=== PATIENT | male | born 1935 | race Hispanic/Latino ===

== ENCOUNTER 2018-12-24 11:48 | Day surgery (SDC) | payer OTHER, MEDICARE ==
[2018-12-24 08:26] VITALS: PULSE 60
[2018-12-24] MEDS ORDERED: Iohexol 350 MG/100 ML VIAL ONE ×2 (12:50→16:08)
[2018-12-24] MEDS ORDERED: Iohexol 350mgl/ml 50 ML ONE (12:50)
[2018-12-24] MEDS ORDERED: Lidocaine PF 2% (5 ml) Inj (For Cardiac Arrhy) ONE (12:50)
[2018-12-24] MEDS ORDERED: Midazolam 2 MG/2 ML VIAL ONE (15:33)
[2018-12-24 16:43] VITALS: BMI 30.8
[2018-12-24] MEDS ORDERED: Sodium Chloride 0.9% 1,000 ML IV STA (16:54)
--- NOTE | 2018-12-24 20:12 | CARDCATH ---
PROCEDURE DATE: 12/24/2018 INDICATIONS: Mr. Maya is an 83-year-old male who presented to [facility] with having a bout of syncope. The patient was noted to be in atrial fibrillation and had history of pacemaker placement in the past. He was noted to have recurrent bouts of orthostatic hypertension for which he was initiated on midodrine. The patient underwent echocardiogram, which raised concern for moderate aortic stenosis and the possibility for etiology of his recurrent syncopal episodes and he was therefore brought to the [facility] for further evaluation and treatment with complete heart catheterization for hemodynamic evaluation of recurrent syncope. PROCEDURES PERFORMED: Complete heart catheterization with selective left and right coronary angiogram. Right heart catheterization with pressures and hemodynamics, simultaneous left ventricular aortic pressure tracings to evaluate for aortic stenosis. TECHNIQUES OF PROCEDURE: After obtaining informed consent, the patient was brought to cardiac catheterization suite in post-absorptive and non-sedated state. The patient was prepped and draped in the usual sterile fashion. A 2% lidocaine was used for infiltration of anesthesia. Using modified Seldinger technique, a 6-[place] sheath was introduced into the left radial artery, a 7-[place] sheath was introduced into the right femoral vein. Subsequently, under fluoroscopic guidance with the balloon inflated, the pulmonary capillary wedge catheter was advanced serially through the IVC into the RA, RV, PA in wedge position. Hemodynamics were obtained and cardiac output was calculated using the thermodilution method. Mean pulmonary artery pressures were 18 mmHg with 32/11. Mean pulmonary capillary wedge pressure 14 mmHg. Thermodilution method cardiac output was calculated to be 2.7 liters with a cardiac index of 1.5 L/min/m2 area. Left ventricular end-diastolic pressure was 16. RV EDP was 3. RA mean pressure was 4. Using the thermodilution method, cardiac output and cardiac indices calculated as above. Subsequently, simultaneous LV AO pressures were obtained and mean transaortic gradients were mmHg consistent with mild aortic stenosis. CORONARY ANATOMY: Left main is a large sized vessel, it bifurcates into left anterior descending and left circumflex coronary artery. The LAD had a proximal 85% stenosis, gives off two medium-sized diagonal branches. The diagonal 1 had 88% stenosis, diagonal 2 was nonobstructive. The left circumflex in the AV groove gives off a medium sized obtuse marginal branch. Mid circumflex has nonobstructive 40% stenosis. The RCA is a small sized nondominant vessel. The left ventricular ejection fraction was normal. TECHNIQUES OF INTERVENTION: After reviewing the above angiographic findings, it was decided to proceed with intervention of the plaque of the proximal LAD lesion. Using a EBU 3.5 guiding catheter and using initially a P[place] wire was used to cross the lesion. Lesion was predilated with a 2.5 balloon and subsequently stented with a 3.5 x 22 mm [place] drug-eluting stent with regeneration down to 0% and NORIS-3 flow. IMPRESSION: Mild aortic stenosis. Normal filling pressures. Low cardiac output. Successful revascularization of high grade proximal left anterior descending lesion. RECOMMENDATIONS: Keep the patient on dual-antiplatelet therapy, wide diuretics as the patient has low cardiac output. Consider past modulation. Thank you Evan Montenegro DPM and Jamie Humphries MD for letting me to participate in the care of your patient. Gabriel Winn MD cc: Evan Montenegro DPM cc: Jamie Humphries MD
[2018-12-24 23:30] VITALS: BP 101/62; PULSE 65; RESP 18; TEMP 98
== END 2018-12-24 23:49 | disposition short-term general hospital (02) ==
LOC: CATH 11:48 → 2RSO 17:36 → CATH 23:49
PROVIDERS: ATTEND Internal Medicine Interventional Cardiology
DX: I25.10 Atherosclerotic heart disease of native coronary artery without angina pectoris (principal); I35.0 Nonrheumatic aortic (valve) stenosis; I10 Essential (primary) hypertension; I48.91 Unspecified atrial fibrillation; Z95.0 Presence of cardiac pacemaker
CPT/HCPCS: 85175; 93460; 93567; 99152; 99153; C1725; C1760; C1769 ×5; C1874; C1887; C1894 ×2; C9600; J1644 ×2; J2250; J3010; J7030; Q9967 ×3